=== PATIENT | female | born 1965 | race Caucasian/White ===

== ENCOUNTER → 2017-03-27 | Outpatient (CLI) | payer OTHER | LOC: FIMAGING 12:01 | DX: Z12.31 Encounter for screening mammogram for malignant neoplasm of breast (principal) | CPT/HCPCS: G0202 ==

== ENCOUNTER → 2018-04-05 | Outpatient (CLI) | payer BC | LOC: FIMAGING 08:10 | DX: Z12.31 Encounter for screening mammogram for malignant neoplasm of breast (principal) ==